=== PATIENT | male | born 1930 | race Caucasian/White ===

== ENCOUNTER 2016-07-11 13:45 | Day surgery (SDC) | payer MEDICARE, OTHER ==
[2016-07-11] VITALS (7 sets, daily range): BP systolic 117–139; BP diastolic 72–80; PULSE 54–70; RESP 16–20; O2SAT 95–99
[~2016-07-11] VITALS: Ht 180.3 cm; Wt 78.2 kg
[~2016-07-11 13:45] MED LIST: Acetaminophen IV 1,000 mg IV ONE; CALC-3 PO; CHOL100045 PO; IBUP200C PO; Lactated Ringer's 1,000 ML IV ONE; Levofloxacin 500 mg/100 mL D5W IV ONE; MAGN500C4 PO; METF500T4 PO
[2016-07-11] MEDS ORDERED: fentaNYL-PF 50 mCg/mL 2 mL Inj ONE (13:46)
[2016-07-11] MEDS ORDERED: MAGN400C PO (14:02)
[2016-07-11] MEDS ORDERED: levoFLOXacin 500 mg/100 mL D5W Premix IV ONE (14:26)
[2016-07-11] MEDS ORDERED: Lactated Ringer's 500 ML IV PRN (16:43)
[2016-07-11] MEDS ORDERED: Lactated Ringer's 1,000 ML IV SCH (16:43)
[2016-07-11] MEDS ORDERED: Ondansetron 2 mg/mL 2 mL Inj IVPUSH PRN (16:45)
[2016-07-11] MEDS ORDERED: Atropine 0.4 mg/mL Inj IVPUSH PRN (16:45)
[2016-07-11] MEDS ORDERED: hydrALAZINE 20 mg/mL Inj IVPUSH PRN (16:45)
[2016-07-11] MEDS ORDERED: Labetalol 5 mg/mL 4 mL Inj IV PRN (16:45)
[2016-07-11] MEDS ORDERED: Phenylephrine 10,000 mCg/mL Inj IVPUSH PRN (16:45)
[2016-07-11] MEDS ORDERED: MetoCLOpramide 5 mg/mL 2 mL Inj IVPUSH PRN (16:45)
[2016-07-11] MEDS ORDERED: fentaNYL-PF 50 mCg/mL 2 mL Inj IVPUSH PRN (16:45)
[2016-07-11] MEDS ORDERED: EPHEDrine Sulfate 50 mg/mL Inj IVPUSH PRN (16:45)
[2016-07-11] MEDS ORDERED: Belladonna Alk-Opium 60 mg Rectal Suppository RECTAL ONE (16:48)
--- NOTE | 2016-07-11 17:13 | PCM.ANEP2 ---
Post Anesthesia Evaluation ASA/CMS Post Anesthesia VS in Patient's Normal Range?: Yes Resp Stable; Airway Patent?: Yes CV Function & Hydration Stable: Yes Mental Status Recovered?: Yes Pain control Satisfactory?: Yes N/V Control Satisfactory?: Yes Rigoberto Ryan MD Jul 11, 2016 17:13
--- NOTE | 2016-07-11 17:13 | PCM.HPANE ---
Patient Data Surgeon Admitting Provider: Attending Provider:Phillip Hyde MD Primary Care Physician:Tate Other Provider:Michelle Walters Anesthesia Reason for Visit Bladder Neck Obstruction Ht/WT & BMI Height (Feet): 6 Height (Inches): 0 Weight (Kilograms): 80.739 Body Mass Index 24.00 Allergies Coded Allergies: Cephalosporins (Verified Allergy, Severe, Anaphylaxis, 07/11/16) Penicillins (Verified Allergy, Severe, Anaphylaxis, 07/11/16) oxycodone HCl (Verified Allergy, Severe, Hives, 07/11/16) finasteride (Verified Allergy, Unknown, UNKNOWN, 07/11/16) Past Anesthesia History Anesthesia History: Denies:: Anesthesia Reactions, Malignant Hyperthermia Diabetes History Hx Diabetes?: Yes Type of Diabetes: Type II Glycemic Control: Oral Medication MRSA MRSA: No Medications Reported Medications Magnesium Oxide (Magnesium)400 Mg [id number] Mg PO 07/11/16 Calcium Carbonate/Vitamin D3 (Calcium 500+D Tablet Chew)1 Each Tab.chew1 Each PO DAILY 07/07/16 Cholecalciferol (Vitamin D3) (Vitamin D)1,000 Unit Capsule1,000 Unit PO DAILY # 1 BOTTLE Ref 0 07/07/16 Metformin 500 Mg [id number] Mg PO BID Ref 0 07/07/16 Ibuprofen 200 Mg [id number] Mg PO QID PRN For Pain Ref 0 07/07/16 Discontinued Reported Medications Magnesium Oxide (Magnesium)500 Mg [id number] Mg PO DAILY 07/07/16 Aspirin-Expunged Drug, Do Not Renew! 81 Mg Rwhioq63 Mg PO DAILY 02/23/11 Metformin-Expunged Drug, Do Not Renew! 500 Mg Ojtjaw846 Mg PO BID 02/23/11 Terazosin-Expunged Drug, Do Not Renew! (Hytrin-Expunged Drug, Do Not Renew!)5 Mg Cap5 Mg PO DAILY 02/23/11 Dutasteride-Expunged Drug, Do Not Renew! 0.5 Mg Capsule0.5 Mg PO HS 02/23/11 History History of ENT Problems?: Yes HEENT History: Positive for:: Cataracts Hearing Problem Hx of Heart Problems?: No Cardiovascular History: Denies:: Heart Murmur Hypertension Hx of Respiratory Problem?: Yes Respiratory History: Positive for:: Pneumonia (HX OF) Denies:: Use of C-PAP Machine (VEDA+ NOTED ON OLD RECORD-STOP BANG CURRENTLY 08/10 ) Hx Neurologic Problems?: No Hx of GI Problems?: Yes Gastrointestinal History: Positive for:: Heartburn Hiatal Hernia Other GI Pertinent History: S/P APPY, HERNIA RPR Hx of Problems?: Yes Other Pertinent History: BLADDER NECK OBSTRUCTION W/ RECURRENT RETENTION= CURRENT PROBLEM Male Hx: Positive for:: Prostate Problems (S/P GREEN LIGHT PVP) Denies:: Scrotal Mass Testicular Surgery Skin History: Denies:: History Skin Disorders? Pressure Ulcers Hx Musculoskeletal Problems?: Yes Musculoskeletal History: Positive for:: Back Injury Denies:: Joint Replacement Hx of Psycho/Social Problems?: No Hx Surgeries?: Yes (SPINAL SURGERY X2,APPY,HERNIA RPR,GREEN LIGHT PVP) Hx Any Other Health Problems?: Yes Other History: Denies:: Cancer Endocrine Disease Hospitalization Thyroid Disease History Blood Transfusions: Positive for:: Accept Blood Products? Denies:: Blood Transfusions Hx Diabetes: Yes Hx Alcohol Use: YesAlcoholic Drinks Per Day: 14/WEEKHx Substance Use: NoHave You Smoked inLast 12 mo: NoApprox How Many Cigarettes/day: 4 PPD Stop/Bang S-Snoring: Do You Snore Loudly: No T-Tired: feel tired, fatigued: No O-Obsered: Observed not breath: No P-Blood Pressure: treated: No B- Body Mass Index > 35 kg/m2: No A- Age over 50: Yes N- Neck Large Circumference: No G- Gender Male: Yes VEDA Total Score: 2 Risk Assessment Category Category 1A: Patient has history of documented sleep apnea, and HAS NOT received any narcotic, sedative or anesthesia administration during this stay. Category 1B: Patient has history of documented sleep apnea, and HAS received any narcotic , sedative or anesthesia administration during this stay Category 2: Patient has SUSPECTED Obstructive Sleep Apnea, and HAS received any narcotic , sedative or anesthesia administration during this stay. Category 3: Patient has SUSPECTED Obstructive Sleep Apnea and HAS NOT received narcotic, sedative or anesthesia administration during this stay. Category 4: Outpatient in Procedural Areas with known sleep apnea or who screen positive for High Risk via the STOP/BANG questionnaire. Exam Exam General Appearance: Alert, Oriented X3, Cooperative, No Acute Distress HEENT/AIRWAY: MP 2, Neck Movement (FROM), Mouth Opening (3 FBMO) Lungs: Normal Air Movement Heart: Regular Rate/Rhythm Plan Impression Patient chart reviewed, patient interviewed and anesthestic plan with risks, benefits, and alternatives discussed, and informed consent obtained. NPO Status: > 8 hrs ASA Physical Status: ASA2 Mod Systemic Disease Anesthetic Plan: GA Bene/Risks/Altern/Consents: Yes HP Complete Prior to Induction: Yes Rigoberto Ryan MD Jul 11, 2016 13:23
--- NOTE | 2016-07-11 17:13 | PCM.ANEP1 ---
Post Anesthesia Phase 1 PACU Phase 1 Assessment Vital Signs Vital Signs Date Time Temp Pulse Resp B/P Pulse Ox O2 Delivery O2 Flow Rate FiO2 07/11/16 14:15 36.7 70 16 131/77 96 Room Air Anesthetic Administered: GA Level of Alertness: Awake, talking BOUDREAUX's with Equal Strength: Yes Pain: No Nausea or Vomiting: No Oxygen Delivery: Simple Mask Lungs: Normal Air Movement Dermatome Level: Full Sensation Rigoberto Ryan MD Jul 11, 2016 17:13
--- NOTE | 2016-07-12 00:45 | OP ---
[address] [address] OPERATIVE REPORT PATIENT: JAKE STONER : 1930 MR#: [id number] ADMIT: 07/11/2016 JOB ID: [id number] DATE OF SURGERY: 07/11/2016 SURGEON: Phillip Hyde MD PREOPERATIVE DIAGNOSIS(ES): 1. Bladder neck contracture. 2. Recurrent urinary retention. POSTOPERATIVE DIAGNOSIS(ES): 1. Bladder neck contracture. 2. Recurrent urinary retention. OPERATION PERFORMED: 1. Cystoscopy. 2. Transurethral incision and dilation of bladder neck contracture. ANESTHESIOLOGIST: Rigoberto Lee MD ANESTHESIA: General. FINDINGS: Urethra normal. External sphincter intact. Prostate nonobstructing, status post TUR. There is a small recurrent nodule at the right proximal prostatic fossa. The bladder neck was fixed at about 15-[place]. Bladder 2+ trabeculation. No stone, tumor, foreign body visualized. Ureteral orifices normal bilaterally. PROCEDURE SUMMARY: The patient was positioned supine, was administered general anesthesia. He was then repositioned in semi-lithotomy. The lower abdomen, genitalia, and groin were then prepped and draped in sterile fashion. The 20-[place] urethrotome was then advanced into the lower urinary tract under direct visualization, with the findings as described above. Next, using the cold knife, radial incisions were made at numerous sites circumferentially about the bladder neck. The bladder was left partially filled. The scope was removed and the Nora sounds were used to dilate the bladder neck to 28-[place]. Reinspection revealed excellent treatment effect. The bladder was then further filled and emptied, and then again partially filled. The scope was then removed again, and now a 20-[place] silicone catheter was inserted. The balloon was inflated to 10 cc and placed to gravity drainage. CC: Ted Roque MD
== END 2016-07-11 23:59 | disposition home or self-care (01) ==
LOC: SAS 13:45
PROVIDERS: ATTEND Specialist
DX: N32.0 Bladder-neck obstruction (principal); R33.9 Retention of urine, unspecified; N40.1 Benign prostatic hyperplasia with lower urinary tract symptoms; E11.9 Type 2 diabetes mellitus without complications; Z79.84 Long term (current) use of oral hypoglycemic drugs; Z87.891 Personal history of nicotine dependence
CPT/HCPCS: 52500; J0131; J7120